=== PATIENT | female | born 1990 | race Caucasian/White ===

== ENCOUNTER 2022-02-28 21:22 | Outpatient (CLI) | payer OTHER ==
[~2022-02-28 21:22] MED LIST: COLACE 100MG C100 MG PO; IBUPROFEN600 MG PO; LORTAB 5-325 M1 EACH PO; PRENATAL 19 TA1 EAC1 PO; PROGESTERONE100 MG PR; PROMETRIUM 200200 MG PR; SYNTHROID175 MCG PO
== END 2022-03-01 10:31 | disposition home or self-care (01) ==
LOC: GENOP 21:22
DX: O47.02 False labor before 37 completed weeks of gestation, second trimester (principal); O99.891 Other specified diseases and conditions complicating pregnancy; R10.9 Unspecified abdominal pain; Z3A.25 25 weeks gestation of pregnancy
CPT/HCPCS: 59025; 76817; 81001; 87210; 96360; 96372; J0702

== ENCOUNTER 2022-03-02 10:10 | Outpatient (CLI) | payer OTHER | END 2022-03-02 11:41 | disposition home or self-care (01) | LOC: GENOP 10:10 | DX: Z29.8 Encounter for other specified prophylactic measures (principal) | CPT/HCPCS: 59025; 96372; J0702 ==

== ENCOUNTER 2022-03-14 18:36 | Outpatient (CLI) | payer OTHER ==
[2022-03-14 20:55] LABS: HEMOGLOBIN 7.8 gm/dl (12.3-15.3); RED BLOOD COUNT 3.19 M/UL (4.00-5.10); WHITE BLOOD COUNT 11.9 K/UL (4.5-11.0)
== END 2022-03-14 21:56 | disposition other institution (70) ==
LOC: GENOP 18:36
PROVIDERS: Obstetrics & Gynecology
DX: O34.32 Maternal care for cervical incompetence, second trimester (principal); Z3A.25 25 weeks gestation of pregnancy
CPT/HCPCS: 36415; 81001; 85025; 96365; 96367; J0610; J3370; J3475; J7070